=== PATIENT | female | born 1970 | race Caucasian/White ===

== ENCOUNTER → 2024-01-06 13:22 | Outpatient (REF) | payer BC, SELFPAY | LOC: WDC 13:22 | PROVIDERS: ATTENDING PHYSICIAN Obstetrics & Gynecology Gynecology | DX: Z12.31 Encounter for screening mammogram for malignant neoplasm of breast (principal) | CPT/HCPCS: 77063; 77067 ==

== ENCOUNTER → 2024-01-13 08:20 | Outpatient (REF) | payer BC, SELFPAY | LOC: WDC 08:20 | PROVIDERS: ATTENDING PHYSICIAN Obstetrics & Gynecology Gynecology | DX: R92.8 Other abnormal and inconclusive findings on diagnostic imaging of breast (principal) | CPT/HCPCS: 76642 ==

== ENCOUNTER → 2024-01-19 07:08 | Outpatient (REF) | payer BC, SELFPAY ==
--- NOTE | 2024-01-19 08:44 | OID.BR.INTR ---
[facility] Breast Navigator - Initial
- -
Date of Contact: 01/19/24
Met with patient. Patient given written information on navigator services available at [facility]. Will follow up as needed per protocol.
== END ==
LOC: WDC 07:08
PROVIDERS: ATTENDING PHYSICIAN Obstetrics & Gynecology Gynecology
DX: N63.23 Unspecified lump in the left breast, lower outer quadrant (principal)
CPT/HCPCS: 88305; 19083; 77065; A4648

== ENCOUNTER → 2024-11-09 14:08 | Outpatient (REF) | payer BC, SELFPAY | LOC: WDC 14:08 | PROVIDERS: ATTENDING PHYSICIAN Obstetrics & Gynecology Gynecology | DX: R92.8 Other abnormal and inconclusive findings on diagnostic imaging of breast (principal) | CPT/HCPCS: 76642 ==